=== PATIENT | female | born 2000 | race Caucasian/White ===

== ENCOUNTER 2021-06-10 13:25 | Emergency (ER) | payer MEDICAID, SELFPAY | END 2021-06-10 18:40 | disposition left against medical advice (07) | PROVIDERS: Emergency Provider Emergency Medicine; PCP Internal Medicine | DX: Z04.9 Encounter for examination and observation for unspecified reason (principal) ==

== ENCOUNTER 2024-05-27 18:17 | Outpatient (REF) | payer MEDICAID, SELFPAY ==
[2024-05-28 11:19] LABS: Bacterial Vaginosis PCR NEGATIVE (Negative); Candida Group PCR DETECTED (Not Detect); Candida glab krusei PCR NOT DETECTED (Not Detect); Trichomonas vaginalis PCR NOT DETECTED (Not Detect)
[2024-06-02 11:49] LABS: N. gonorrhoeae RNA TMA NOT DETECTED
[2024-06-02 11:50] LABS: Trichomonas (NAAT) NOT DETECTED
== END 2024-05-27 18:18 | disposition home or self-care (01) ==
LOC: HO.HHCLNP 18:17
PROVIDERS: Visit Provider Nurse Practitioner Family
DX: Z12.4 Encounter for screening for malignant neoplasm of cervix (principal)
CPT/HCPCS: 0352U; 87491; 87591; 87661; 88175